=== PATIENT | male | born 1955 | race Caucasian/White ===

== ENCOUNTER 2017-03-01 16:37 | Emergency (ER) | payer SELFPAY ==
[2017-03-01 16:43] VITALS: BMI 21.7
--- NOTE | 2017-03-01 17:07 | ED PDOC ---
Arrival/HPI - General Chief Complaint: Lower Extremity Problem/Injury Time Seen by Provider: 03/01/17 16:48 - History of Present Illness Narrative History of Present Illness (Text): 61 year old M c Past medical history Hypertension, Hypercholesterolemia, Parkinson's disease p/w R foot pain x 2 weeks. Pain is sharp, located at the base of the fifth metatarsal, radiates up to the knee/thigh, worse with bearing weight. Patient denies trauma or injury or fever. Patient had a similar pain about 7 years ago and was treated with pain medication and it resolved after a few weeks. He suspects it could be gout. Patient is from [facility] and is here visiting for about 2 more months. Past Medical History - Cardiac Hx Hypertension: Yes - Neurological Hx Parkinson's Disease: Yes - Endocrine/Metabolic Other/Comment: pre-diabetes - Psychiatric Hx Substance Use: No - Surgical History Hx Cataract Extraction: Yes Family/Social History Family/Social History: No Known Family HX Smoking Status: Never Smoked Hx Alcohol Use: No Hx Substance Use: No Allergies/Home Meds Allergies/Adverse Reactions: Allergies No Known Allergies Allergy (Verified 03/01/17 16:43) Home Medications: Home Meds Medication Instructions Recorded Confirmed Lisinopril [Zestril] 10 mg PO DAILY 03/01/17 03/01/17 Nifedipine [Nifedipine ER] 30 mg PO DAILY 03/01/17 03/01/17 Review of Systems - Physician Review All systems were reviewed & negative as marked: Yes - Review of Systems Constitutional: absent: Fevers Respiratory: absent: SOB Cardiovascular: absent: Chest Pain Physical Exam - Physical Exam Narrative Physical Exam (Text): Constitutional: No acute distress. Head: Normocephalic. Atraumatic. Eyes: PERRL. ENT: Moist mucous membranes. Neck: Supple. Cardiovascular: Regular rate. Chest: No tenderness. Respiratory: Clear to auscultation bilaterally. GI: Soft. Nontender. Nondistended. Back: No CVA tenderness. Musculoskeletal: +tenderness of lateral R foot without ecchymosis or swelling. FROM digits, ankle, knee, and hip. No tenderness of tib/fib, knee, thigh, or hip. Skin: No rash. Neurologic: Alert, no focal deficit. Bradykinesia. Mild tremor. Vital Signs Temp Pulse Resp BP Pulse Ox 03/01/17 16:40 98.4 F 83 16 117/83 99 Medical Decision Making ED Course and Treatment: Patient with atraumatic foot pain with focal tenderness. FROM of joints. Will treat with NSAIDs, XR, and check urine. 03/01/17 18:58 XR shows 5th metatarsal fracture at midshaft without displacement. Posterior splint placed, crutches provided with family to help patient with use, NWB, ortho follow up. - Lab Interpretations Lab Results: Lab Results 03/01/17 17:20: Urine Color Yellow, Urine Appearance Clear, Urine pH 7.0, Ur Specific [place] 1.015, Urine Protein Negative, Urine Glucose (UA) Negative, Urine Ketones Negative, Urine Blood Negative, Urine Nitrate Negative, Urine Bilirubin Negative, Urine Urobilinogen 0.2, Ur Leukocyte Esterase Negative - RAD Interpretation Radiology Orders: 03/01/17 17:01 FOOT RIGHT 3 VIEWS ROUTINE [RAD] Stat - Medication Orders Current Medication Orders: Discontinued Medications Ketorolac Tromethamine (Toradol) 60 mg IM STAT STA Stop: 03/01/17 17:02 Last Admin: 03/01/17 17:15 Dose: 60 mg Disposition/Present on Arrival - Present on Arrival Any Indicators Present on Arrival: No History of DVT/PE: No History of Uncontrolled Diabetes: No Urinary Catheter: No History of Decub. Ulcer: No History Surgical Site Infection Following: None - Disposition Have Diagnosis and Disposition been Completed?: Yes Diagnosis: Metatarsal fracture Disposition: HOME/ ROUTINE Disposition Time: 18:59 Patient Plan: Discharge Patient Problems: Current Active Problems Problem Status Onset Metatarsal fracture Acute Condition: STABLE Discharge Instructions (ExitCare): Foot Fracture in Adults (ED) Prescriptions: Famotidine [Pepcid] 1 tab PO BID #14 tab Ibuprofen [Motrin] 600 mg PO Q6 #25 tab Referrals: Baldev Thomson DO [Staff Provider] - Follow up with primary Pacheco Foley DPM [Staff Provider] - Follow up with primary
[2017-03-01 17:35] LABS: URINE BILIRUBIN NEGATIVE (NEGATIVE); URINE BLOOD NEGATIVE (NEGATIVE); URINE GLUCOSE (UA) NEGATIVE (NEGATIVE); URINE LEUKOCYTE ESTERASE NEGATIVE Leu/uL (NEGATIVE); URINE NITRATE NEGATIVE (NEGATIVE); URINE PROTEIN NEGATIVE mg/dL (<30 mg/dL); URINE UROBILINOGEN 0.2 E.U./dL (<1 E.U./dL)
[2017-03-01 17:36] LABS: URINE APPEARANCE CLEAR (CLEAR); URINE COLOR YELLOW (YELLOW)
[2017-03-01 19:17] VITALS: BP 136/99; PULSE 67; RESP 18; TEMP 97.6; O2SAT 98
--- NOTE | 2017-03-02 08:20 | RAD ---
PROCEDURE: Right Foot Radiographs. HISTORY: R foot pain laterally COMPARISON: None. FINDINGS: BONES: Transverse nondisplaced fracture mid 5th metatarsal diaphysis. No other acute fracture. Periosteal reaction about proximal 4th metatarsal diaphysis may indicate healed old fracture. No other acute abnormality. JOINTS: Normal. SOFT TISSUES: Normal. OTHER FINDINGS: None. IMPRESSION: Nondisplaced transverse fracture 5th metatarsal diaphysis.
== END 2017-03-01 19:53 | disposition home or self-care (01) ==
LOC: ED 16:37
DX: S92.351A Displaced fracture of fifth metatarsal bone, right foot, initial encounter for closed fracture (principal); X58.XXXA Exposure to other specified factors, initial encounter; Y93.9 Activity, unspecified; Y92.9 Unspecified place or not applicable
CPT/HCPCS: 29515; 73630; 81003; 96372; 99283; J1885